=== PATIENT | female | born 2005 | race Caucasian/White ===

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

== ENCOUNTER 2025-02-25 07:59 | Emergency (ER) | payer MEDICAID, MEDICARE ==
[~2025-02-25] VITALS: Ht 154.9 cm; Wt 59.0 kg
[~2025-02-25 07:59] MED LIST changes: +IBUP-2029 MT; +OMEP40CA20 MT
[2025-02-25 08:05] VITALS: O2SAT 98
[2025-02-25] MEDS: DEXAMETHASONE 10 MG/ML VIAL IM ONE (08:47)
[2025-02-25] MEDS: ACETAMINOPHEN 325MG TABLET PO ONE (08:47)
[2025-02-25] MEDS: KETOROLAC 30MG/ML VIAL IM ONE (08:47)
[2025-02-25] MEDS ORDERED: METH4TAB95 MT (09:48)
[2025-02-25] MEDS ORDERED: IBUP-2029 MT (09:48)
[2025-02-25] MEDS ORDERED: BROM118S47 PO (09:48)
[2025-02-25] MEDS ORDERED: ACET-2708 MT (09:48)
[2025-02-25 10:05] VITALS: BP 117/65; PULSE 94; RESP 16; TEMP 37.7; O2SAT 98
== END 2025-02-25 10:15 | disposition home or self-care (01) ==
LOC: ER 07:59
DX: B34.9 Viral infection, unspecified (principal); Z79.899 Other long term (current) drug therapy
CPT/HCPCS: 81025; 87430; 87070; 96372; 99284; J1100; J1885; Z7610